=== PATIENT | female | born 1975 | race Caucasian/White ===

== ENCOUNTER → 2016-12-15 | Outpatient (CLI) | payer BC ==
[~2016-12-15] MED LIST: BCP PO; DICY20TA57 PO; DIVA500T15 PO; ESTROGEN; HYDR-3720 PO; IBUP800T26 PO; SULF1TAB38 PO
--- NOTE | 2016-12-19 09:55 | Diagnostic Imaging Report ---
EXAMINATION: Bilateral screening mammogram with a Computer Aided Detection (CAD) system. INDICATION: Screening. PERSONAL HISTORY: No current complaints stated on the questionnaire. COMPARISON: 11/13/2014. FINDINGS: The breasts are composed of heterogeneously dense parenchyma which may decrease mammographic sensitivity. There are occasional benign-appearing calcifications. Allowing for technique and positional differences, no suspicious change is seen. IMPRESSION: Dense breasts with no definite change. ACR BI-RADS Category 2: Benign findings. Result letter will be mailed to the patient. Note: At least 10% of breast cancer is not imaged by mammography. Dictated by: Dictated on workstation # [id number]
== END ==
LOC: RAD 12:40
PROVIDERS: ATTEND Obstetrics & Gynecology
DX: Z12.31 Encounter for screening mammogram for malignant neoplasm of breast (principal)
CPT/HCPCS: 77067

== ENCOUNTER → 2017-12-21 | Outpatient (CLI) | payer BC ==
--- NOTE | 2017-12-21 13:18 | Diagnostic Imaging Report ---
INDICATION: Routine screening. Comparison is made with prior study from 12/15/2016 and 11/13/2014. 2-D and 3-D bilateral screening mammography was performed. The current study was also evaluated with a Computer Aided Detection (CAD) system. FINDINGS: Both breasts show marked parenchymal heterogeneity and increased density, limiting the sensitivity of mammography. No discrete mass is identified. Benign calcifications on the right appear stable. No malignant-appearing microcalcifications are seen. The axillae are unremarkable. IMPRESSION: No mammographic features suspicious for malignancy are identified. ACR BI-RADS Category 2: Benign findings. Result letter will be mailed to the patient. Note: At least 10% of breast cancer is not imaged by mammography. Dictated by: Dictated on workstation # [id number]
== END ==
LOC: RAD 09:11
PROVIDERS: ATTEND Obstetrics & Gynecology
DX: Z12.31 Encounter for screening mammogram for malignant neoplasm of breast (principal)
CPT/HCPCS: 77067

== ENCOUNTER 2018-07-27 16:08 | Emergency (ER) | payer BC ==
[~2018-07-27] VITALS: Ht 152.4 cm; Wt 50.8 kg
--- OUTSIDE RECORDS SUMMARY | 2018-07-27 16:13 | XMS REPORT | Continuity of Care Document ---
Author Author [facility] Organization [facility] Address Unknown Phone Unavailable Allergies Active Description Code Type Severity Reaction Onset Reported/Identified Relationship to Patient Clinical Status Yes NKANo Known Allergies NKA Miscellaneous Allergy Unknown N/A 07/12/2006 Yes No Known Drug Allergies [id number] Drug Allergy Unknown N/A 02/14/2008 Medications There is no data. Problems Date Dx Coded Attending Type Code Diagnosis Diagnosed By 04/05/2013 ISABELL PERDOMO, DARBY Oh Ot 599.0 URIN TRACT INFECTION NOS 04/05/2013 DARBY WHYTE MD Ot 789.09 ABDOMINAL PAIN, OTHER SPECIFIED SITE 09/09/2014 Ot 626.2 EXCESSIVE MENSTRUATION 09/24/2014 Ot 626.8 09/24/2014 Ot V72.63 09/24/2014 Ot V74.8 11/11/2014 Ot 611.72 11/11/2014 Ot 793.89 11/11/2014 Ot 793.80 11/11/2014 WILLIAM PERDOMO, SHANEL Oh Ot 599.70 11/11/2014 Ot 626.8 11/11/2014 Ot V72.63 11/11/2014 Ot V74.8 12/15/2014 MARIANNE PERDOMO, AL Marks Ot 611.72 12/30/2014 Ot 611.72 12/30/2014 Ot 793.89 12/30/2014 Ot 793.80 12/30/2014 SHANEL THOMAS MD Ot 599.70 12/30/2014 Ot 626.8 12/30/2014 Ot V72.63 12/30/2014 Ot V74.8 12/30/2014 MARIANNE PERDOMO, AL Marks Ot 611.72 01/12/2015 MARIANNE PERDOMO, AL Marks Ot 611.72 12/11/2016 WILLIAM PERDOMO, SHANEL Oh Ot 599.70 HEMATURIA, UNSPECIFIED 12/11/2016 Ot 626.8 MENSTRUAL DISORDER NEC 12/11/2016 Ot V72.63 PRE- PROCEDURAL LABORATORY EXAMINATION 12/11/2016 Ot V74.8 SCREEN- BACTERIAL DIS NEC 12/11/2016 AL LOPES MD Ot 611.72 LUMP OR MASS IN BREAST 12/19/2016 AL LOPES MD Ot Z12.31 ENCNTR SCREEN MAMMOGRAM FOR MALIGNANT NE 12/28/2016 AL LOPES MD, Ot Z12.31 ENCNTR SCREEN MAMMOGRAM FOR MALIGNANT NE 12/24/2017 AL LOPES MD, Ot Z12.31 ENCNTR SCREEN MAMMOGRAM FOR MALIGNANT NE 12/24/2017 AL LOPES MD, Ot Z12.31 ENCNTR SCREEN MAMMOGRAM FOR MALIGNANT NE 01/01/2018 AL LOPES MD, Ot Z12.31 ENCNTR SCREEN MAMMOGRAM FOR MALIGNANT NE Procedures There is no data. Results There is no data. Encounters ACCT No. Visit Date/Time Discharge Status Pt. Type Provider Facility Loc./Unit Complaint [id number] 12/21/2017 09:11:00 12/21/2017 23:59:59 CLS Outpatient AL LOPES MD [facility] RAD SCREENING [id number] 12/15/2016 12:40:00 12/15/2016 23:59:59 CLS Outpatient AL LOPES MD [facility] RAD SCREENING [id number] 11/13/2014 07:37:00 11/13/2014 23:59:59 CLS Outpatient AL LOPES MD [facility] RAD LUMP,THICKEN AREA [id number] 04/26/2013 17:12:00 04/26/2013 23:59:59 CLS Outpatient [id number] 04/25/2013 15:33:00 04/25/2013 23:59:59 CLS Outpatient SHANEL THOMAS MD [facility] RAD HEMATURIA [id number] 04/04/2013 18:03:00 04/05/2013 00:02:00 DIS Emergency DARBY WHYTE MD [facility] ER ABD PAIN [id number] 02/03/2013 09:49:00 02/03/2013 23:59:59 [facility] Outpatient [id number] 11/11/2014 12:42:00 Document Registration [id number] 11/11/2014 12:42:00 Document Registration [id number] 09/09/2014 09:55:00 Document Registration [id number] 09/03/2014 08:00:00 Document Registration [id number] 11/01/2009 14:35:00 Document Registration
[2018-07-27] MEDS ORDERED: GABA-486 (16:22)
[2018-07-27] MEDS ORDERED: ETHY1TAB (16:22)
[2018-07-27] MEDS ORDERED: TOPI25TA10 (16:22)
--- NOTE | 2018-07-27 16:24 | ED Headache ---
General Chief Complaint: Head/Cervical Problems Stated Complaint: MIGRAINE FOR 4 DAYS Nursing Triage Note: ARRIVED VIA AMB TO ROOM 04 WITH COMPLAINTS OF MIGRAINE X4 DAYS. Nursing Sepsis Screen: No Definite Risk Source: patient, family Exam Limitations: no limitations History of Present Illness Date Seen by Provider: Jul 27, 2018 Time Seen by Provider: 16:12 Initial Comments The patient presents to the ER by private conveyance with chief complaint for the past 4 days she's been experiencing intermittent headaches that are throbbing above the right eye wrapping around to the right quaker. They will last several hours at a time. She has a known migraine disorder and this is consistent. She did not have any aura. She's not having any hallucination loss of vision, sore throat cough ear fullness. She's having some clear rhinorrhea for the past several days. She's had no fevers chills shortness of breath but she has had nausea and vomiting with no vomiting today. She denies dysuria. She says she's not had a period since 2014 because of a endometrial ablation. Allergies and Home Medications Allergies Coded Allergies: No Known Drug Allergies (Verified , 02/14/08) Patient Home Medication List Home Medication List Reviewed: Yes Review of Systems Review of Systems Constitutional: No chills, No fever Eyes: Denies Blindness, Denies Blurred Vision, Denies Decreased Acuity, Denies Pain; Photophobia Ears, Nose, Mouth, Throat: denies ear pain, denies ear discharge, denies throat pain, denies throat swelling Respiratory: No cough, No short of breath Cardiovascular: No chest pain, No edema Gastrointestinal: No abdominal pain, No constipation, No diarrhea; nausea, vomiting Past Kxcyeoq-Acfnew-Ubmebk Hx Patient Social History Alcohol Use: Denies Use Recreational Drug Use: No Smoking Status: Never a Smoker Recent Foreign Travel: No Contact w/Someone Who Travel: No Recent Infectious Disease Expo: No Past Medical History Surgeries: Yes (WISDOM TEETH) Respiratory: No Cardiac: No Neurological: Yes Headaches /Migraines Reproductive Disorders: Yes (DUB, UTERINE MASS) Genitourinary: No Gastrointestinal: Yes (IBS) Endocrine: No HEENT: No Cancer: No Psychosocial: No Blood Disorders: No Physical Exam Vital Signs Vital Signs - First Documented 07/27/18 16:12 Temp 98.0 Pulse 93 Resp 16 B/P (MAP) 143/91 (108) Pulse Ox 96 O2 Delivery Room Air Capillary Refill : Less Than 3 Seconds Height, Weight, BMI Height: 5'0.00" Weight: 112lbs. oz. 50.363154qn; BMI Method:Stated General Appearance: WD/WN, mild distress HEENT: PERRL/EOMI, normal ENT inspection, TMs normal, pharynx normal Neck: non-tender, full range of motion, supple, normal inspection Cardiovascular: normal peripheral pulses, regular rate, rhythm, no edema Respiratory: no respiratory distress, no accessory muscle use Psychiatric: alert, oriented x 3 Crainal Nerves: normal hearing, normal speech, PERRL, other (cranial nerves II through XII intact as tested) Coordination/Gait: normal gait Motor/Sensory: no motor deficit, no sensory deficit Skin: normal color, warm/dry Progress/Results/Core Measures Results/Orders My Orders Orders - [facility] Urine Bedside (07/27/18 16:19) Prochlorperazine Injection (Compazine In (07/27/18 16:30) Ondansetron Oral Dissolve Tab (Zofran (07/27/18 16:30) Ketorolac Injection (Toradol Injection) (07/27/18 16:30) Sumatriptan Injection (Imitrex Injection (07/27/18 16:30) Diphenhydramine Tablet (Benadryl Tablet) (07/27/18 16:30) Acetaminophen Tablet (Tylenol Tablet) (07/27/18 17:15) Dexamethasone Injection (Decadron Inject (07/27/18 17:15) Medications Given in ED Current Medications Medications Dose Ordered Sig/Carly Route Start Time Stop Time Status Last Admin Dose Admin Diphenhydramine HCl 50 mg ONCE ONCE PO 07/27/18 16:30 07/27/18 16:31 DC 07/27/18 16:34 50 MG Ketorolac Tromethamine 30 mg ONCE ONCE IM 07/27/18 16:30 07/27/18 16:31 DC 07/27/18 16:31 30 MG Ondansetron HCl 4 mg ONCE ONCE PO 07/27/18 16:30 07/27/18 16:31 DC 07/27/18 16:27 4 MG Prochlorperazine Edisylate 10 mg ONCE ONCE IM 07/27/18 16:30 07/27/18 16:31 DC 07/27/18 16:30 10 MG Sumatriptan Succinate 6 mg ONCE ONCE SQ 07/27/18 16:30 07/27/18 16:31 DC 07/27/18 16:29 6 MG Vital Signs/I&O 07/27/18 16:12 Temp 98.0 Pulse 93 Resp 16 B/P (MAP) 143/91 (108) Pulse Ox 96 O2 Delivery Room Air Blood Pressure Mean: 108 Progress Progress Note #1: Time: 16:24 Progress Note Bedside hCG. Imitrex, Compazine, Zofran oral dissolving tablet, Benadryl oral and Toradol 30 mg IM. We'll consider Decadron Progress Note #2: Time: 17:16 Progress Note The patient's pain significantly improved from an 8 down to 5 out of 10. She still having a little bit nauseous we'll give her some Reglan in addition to Tylenol and Decadron. If she is doing well after that we'll go ahead and let her go home get some rest. Departure Impression Primary Impression: Migraine Qualified Codes: G43.009 - Migraine without aura, not intractable, without status migrainosus Disposition: 01 HOME, SELF-CARE Condition: Improved Departure-Patient Inst. Decision time for Depature: 17:17 Referrals: ELISABETH PEREYRA DO (PCP/Family) Primary Care Physician Patient Instructions: Migraine Headache (DC) Add. Discharge Instructions: By 10:00 tonight you can resume the Advil, Tylenol and Benadryl as necessary. Get some sleep. Drink plenty of fluids tonight before going to sleep. All discharge instructions reviewed with patient and/or family. Voiced understanding. DOUG EAST Jul 27, 2018 16:24
[2018-07-27] MEDS ORDERED: PROCHLORPERAZINE 10 MG/2ML INJ (COMPAZINE) IM ONE (16:30)
[2018-07-27] MEDS ORDERED: KETOROLAC 30 MG/ML VIAL IM ONE (16:30)
[2018-07-27] MEDS ORDERED: SUMAtriptan 6 MG/0.5 ML (IMITREX) INJ SQ ONE (16:30)
[2018-07-27] MEDS ORDERED: ONDANSETRON 4 MG (ZOFRAN) ORAL DISSOLVE TAB PO ONE (16:30)
[2018-07-27] MEDS ORDERED: diphenhydrAMINE 25 MG TAB (BENADRYL) PO ONE (16:30)
--- NOTE | 2018-07-27 17:12 | NUR ---
PT RATES HER PAIN 5/10 ET STATES PAIN IS BETTER BUT SHE IS STILL HAVING PRESSURE. DR EAST NOTIFIED.
--- NOTE | 2018-07-27 17:13 | NUR ---
IN TALKING TO PT AT THIS TIME.
[2018-07-27] MEDS ORDERED: METOCLOPRAMIDE INJ 10 MG/2 ML (REGLAN) IM ONE (17:15)
[2018-07-27] MEDS ORDERED: DEXAMETHASONE 10 MG/ML (DECADRON) 1 ML VIAL IM ONE (17:15)
[2018-07-27] MEDS ORDERED: ACETAMINOPHEN 500 MG TAB (TYLENOL) PO ONE (17:15)
[2018-07-27 17:39] VITALS: BP 107/73
== END 2018-07-27 17:39 | disposition home or self-care (01) ==
LOC: EDUNIT# 16:08 → ER 16:09
DX: G43.909 Migraine, unspecified, not intractable, without status migrainosus (principal); K58.9 Irritable bowel syndrome, unspecified; Z87.448 Personal history of other diseases of urinary system; Z98.890 Other specified postprocedural states
CPT/HCPCS: 84703; 96372; 99284

== ENCOUNTER → 2019-01-17 | Outpatient (CLI) | payer BC ==
[~2019-01-17] MED LIST changes: +ETHY1TAB; +GABA-486; +TOPI25TA10
--- NOTE | 2019-01-17 17:06 | Diagnostic Imaging Report ---
INDICATION: Routine screening. COMPARISON: Prior mammograms from 12/21/2017 and 12/15/2016. EXAMINATION: 2D and 3D bilateral screening mammography was performed with CAD. The current study was also evaluated with a Computer Aided Detection (CAD) system. FINDINGS: Both breasts remain heterogeneously dense, limiting the sensitivity of mammography. The parenchymal pattern appears stable. No discrete mass is identified. No malignant appearing microcalcifications are seen. There are benign calcifications in the right breast. The axillae are unremarkable. IMPRESSION: No mammographic features suspicious for malignancy are identified. ACR BI-RADS Category 2: Benign findings. Result letter will be mailed to the patient. Note: At least 10% of breast cancer is not imaged by mammography. Dictated on workstation # [id number]
== END ==
LOC: RAD 08:15
PROVIDERS: ATTEND Obstetrics & Gynecology
DX: Z12.31 Encounter for screening mammogram for malignant neoplasm of breast (principal)
CPT/HCPCS: 77067

== ENCOUNTER → 2020-04-06 | Outpatient (CLI) | payer BC ==
--- NOTE | 2020-04-06 12:57 | Diagnostic Imaging Report ---
INDICATION: Routine screening. COMPARISON: 01/17/2019 and 12/21/2017. TECHNIQUE: 2D and 3D bilateral screening mammography was performed with CAD. FINDINGS: Both breasts are heterogeneously dense, limiting the sensitivity of mammography. There are scattered benign calcifications. No mass or malignant appearing microcalcifications are seen. The axillae are unremarkable. IMPRESSION: No mammographic features suspicious for malignancy are identified. ACR BI-RADS Category 2: Benign findings. Result letter will be mailed to the patient. Note: At least 10% of breast cancer is not imaged by mammography. Dictated by: Dictated on workstation # [id number]
== END ==
LOC: RAD 07:30
PROVIDERS: ATTEND Obstetrics & Gynecology
DX: Z12.31 Encounter for screening mammogram for malignant neoplasm of breast (principal)
CPT/HCPCS: 77063; 77067

== ENCOUNTER 2021-08-12 14:07 | Emergency (ER) | payer BC ==
[~2021-08-12] VITALS: Ht 152.4 cm; Wt 48.5 kg
[2021-08-12] MEDS ORDERED: diphenhydrAMINE 50 MG/ML INJ (BENADRYL) IVP ONE (14:45)
[2021-08-12] MEDS ORDERED: ACETAMINOPHEN 500 MG TAB (TYLENOL) PO ONE (14:45)
[2021-08-12] MEDS ORDERED: PROMETHAZINE INJ 25 MG/ML (PHENERGAN) AMP IVP ONE (14:45)
[2021-08-12] MEDS ORDERED: NS IV 500 ML 500 ML IV ONE (14:45)
[2021-08-12] MEDS ORDERED: methylPREDNISolone 125 MG (Solu-MEDROL) VIAL IVP ONE (14:45)
[2021-08-12] MEDS ORDERED: KETOROLAC 30 MG/ML VIAL IVP ONE (14:45)
--- NOTE | 2021-08-12 14:48 | ED Headache ---
General Chief Complaint: Head/Cervical Problems Stated Complaint: MIGRAINE Nursing Triage Note: PT AMBULATE TO ROOM FT1 WITH C/O MIGRAINE X3 DAYS. PT REPORTS HX OF MIGRAINES. PT REPORTS TAKING TYLENOL AND BENEDRYL WITHOUT RELIEF. PT REPORTS TAKING X3 HYDROCODONE YESTERDAY WITHOUT RELIEF. Source: patient, other Exam Limitations: no limitations History of Present Illness Date Seen by Provider: Aug 12, 2021 Time Seen by Provider: 14:24 Initial Comments Patient to the ER by private conveyance with her significant other and chief complaint of 3 days of persistent right-sided throbbing migraine headache. No blindness, weakness, numbness, confusion, diarrhea, fevers or chills. She has nausea. She has been using gabapentin and topiramate to prevent migraines and has Dr. Esparza as her neurologist. She also was given a new medication to try and acutely treat the migraine headache but she cannot member the name of it. She also had her gabapentin elevated to 200 mg daily by her neurologist when she called him today. She is only had to come out 2 times in the last 4 years to have her migraines dealt with by a "cocktail". She is also complaining of some paresthesias burning tingling sensations going down bilateral arms along the dorsum. No trauma or falls. Allergies and Home Medications Allergies Coded Allergies: No Known Drug Allergies (Verified , 02/14/08) Patient Home Medication List Home Medication List Reviewed: Yes Ethynodiol D-Ethinyl Estradiol (Ethynodiol-Eth Estra 1Mg-50Mcg) 1 Each Tablet, (Reported) Entered as Reported by: LUÍS TREVINO on 07/27/181621 Gabapentin (Gabapentin) 100 Mg Capsule, (Reported) Entered as Reported by: LUÍS TREVINO on 07/27/181621 Topiramate (Topiramate) 25 Mg Tablet, (Reported) Entered as Reported by: LUÍS TREVINO on 07/27/181621 Review of Systems Review of Systems Constitutional: No chills, No diaphoresis Eyes: Denies Blindness, Denies Drainage Ears, Nose, Mouth, Throat: denies ear pain, denies ear discharge Respiratory: No cough, No short of breath Cardiovascular: No edema, No palpitations Gastrointestinal: No abdominal pain, No constipation, No diarrhea; nausea Genitourinary: No discharge, No dysuria Musculoskeletal: No back pain, No joint pain All Other Systems Reviewed Negative Unless Noted: Yes Past Jtpmnth-Gvtais-Sftfoy Hx Patient Social History Tobacco Use?: No Smoking Status: Never a Smoker Smokeless Tobacco Frequency: Never a User Use of E-Cig and/or Vaping dev: No Use of E-Cig and/or Vaping Chu: Never a User Substance use?: No Alcohol Use?: No Pt feels they are or have been: No Past Medical History Surgeries: Yes (WISDOM TEETH) Respiratory: No Cardiac: No Neurological: Yes Headaches /Migraines Reproductive Disorders: Yes (DUB, UTERINE MASS) Genitourinary: No Gastrointestinal: Yes (IBS) Endocrine: No HEENT: No Cancer: No Psychosocial: No Blood Disorders: No Physical Exam Vital Signs Vital Signs - First Documented 08/12/21 14:26 Temp 36.4 Pulse 93 Resp 19 B/P (MAP) 130/82 (98) O2 Delivery Room Air Capillary Refill : Less Than 3 Seconds Height, Weight, BMI Height: 5'0.00" Weight: 112lbs. oz. 50.119156ru; 20.00 BMI Method:Stated General Appearance: WD/WN, mild distress HEENT: PERRL/EOMI, normal ENT inspection, TMs normal, pharynx normal (Oral mucosa is moist) Neck: full range of motion, supple, normal inspection Cardiovascular: normal peripheral pulses, regular rate, rhythm Respiratory: no respiratory distress, no accessory muscle use Psychiatric: alert, oriented x 3 Crainal Nerves: normal hearing, normal speech, PERRL Coordination/Gait: normal gait Motor/Sensory: no motor deficit, no sensory deficit Skin: normal color, warm/dry Progress/Results/Core Measures Results/Orders My Orders Orders - [facility] Diphenhydramine Injection (Benadryl Inje (08/12/21 14:45) Promethazine Injection (Phenergan Injec (08/12/21 14:45) Methylprednisolone Sod Succ (Solu-Medrol (08/12/21 14:45) Ketorolac Injection (Toradol Injection) (08/12/21 14:45) Acetaminophen Tablet (Tylenol Tablet) (08/12/21 14:45) Ed Iv/Invasive Line Start (08/12/21 14:41) Ns Iv 500 Ml (Sodium Chloride 0.9%) (08/12/21 14:45) Medications Given in ED Current Medications Medications Dose Ordered Sig/Carly Route Start Time Stop Time Status Last Admin Dose Admin Acetaminophen 1,000 mg ONCE ONCE PO 08/12/21 14:45 08/12/21 14:46 DC 08/12/21 14:53 1,000 MG Diphenhydramine HCl 25 mg ONCE ONCE IVP 08/12/21 14:45 08/12/21 14:46 DC 08/12/21 14:52 25 MG Ketorolac Tromethamine 30 mg ONCE ONCE IVP 08/12/21 14:45 08/12/21 14:46 DC 08/12/21 14:52 30 MG Methylprednisolone Sodium Succinate 125 mg ONCE ONCE IVP 08/12/21 14:45 08/12/21 14:46 DC 08/12/21 14:53 125 MG Promethazine HCl 25 mg ONCE ONCE IVP 08/12/21 14:45 08/12/21 14:46 DC 08/12/21 14:52 25 MG Sodium Chloride 500 ml @ 0 mls/hr Q0M ONCE IV 08/12/21 14:45 08/12/21 14:46 DC 08/12/21 14:53 999 MLS/HR Vital Signs/I&O 08/12/21 14:26 Temp 36.4 Pulse 93 Resp 19 B/P (MAP) 130/82 (98) O2 Delivery Room Air Blood Pressure Mean: 98 Progress Progress Note #1: Time: 14:46 Progress Note She has no new motor weakness nor sensory deprivation and I suspect that her paresthesias of her bilateral upper extremities are related to paracervical radiculopathy. She does feel like she has a knot in her shoulders probably from the headache this been going on for 3 days. Are going to trial a treatment of her headache and see if that helps her symptoms. Return precautions were discussed. Plan to use Toradol, Phenergan and 500 cc of saline, Benadryl, Solu- Medrol and Tylenol for her migraine. Progress Note #2: Time: 15:36 Progress Note The patient started to feel little better and drowsy. We will allow her to go home and return precautions were given Departure Impression Primary Impression: Migraine Qualified Codes: G43.001 - Migraine without aura, not intractable, with status migrainosus Additional Impression: Cervical radiculopathy, acute Disposition: HOME, SELF-CARE Condition: Stable Departure-Patient Inst. Decision time for Depature: 15:36 Referrals: ELISABETH PEREYRA DO (PCP/Family) Primary Care Physician Patient Instructions: Migraines (DC), How to Keep Track of Your Headaches Add. Discharge Instructions: Drink plenty of fluids. Tylenol 1000 mg every 8 hours necessary for headache. Ibuprofen 800 mg every 8 hours as necessary for headache. Plenty of rest over the next couple days. Return to the ER promptly if you experience fever, confusion, sweats, intractable vomiting or other worrisome symptoms. All discharge instructions reviewed with patient and/or family. Voiced understanding. Work/School Note: Work Release Form Date Seen in the Emergency Department: Aug 12, 2021 Return to Work: Aug 15, 2021 Restrictions: No Restrictions D[facility] Aug 12, 2021 14:48
[2021-08-12 15:49] VITALS: BP 123/74
== END 2021-08-12 15:50 | disposition home or self-care (01) ==
LOC: EDUNIT# 14:07 → ER 14:09
DX: G43.909 Migraine, unspecified, not intractable, without status migrainosus (principal); M54.12 Radiculopathy, cervical region; Z79.899 Other long term (current) drug therapy

== ENCOUNTER → 2021-09-30 | Outpatient (CLI) | payer BC ==
--- NOTE | 2021-09-30 10:08 | Diagnostic Imaging Report ---
Indication: Routine screening. Comparison is made with prior mammograms of 04/06/2020 and 01/17/2019. 2-D and 3-D bilateral screening mammography was performed with CAD. Both breasts are heterogeneously dense, limiting the sensitivity of mammography. The parenchymal pattern is stable. There are occasional benign calcifications. No mass or malignant-appearing microcalcifications are seen. Axillae are unremarkable. IMPRESSION: BI-RADS Category 2 No mammographic features suspicious for malignancy are identified. ACR BI-RADS Category 2: Benign findings. Result letter will be mailed to the patient. Note: At least 10% of breast cancer is not imaged by mammography. Dictated by: Dictated on workstation # [id number]
== END ==
LOC: RAD 07:41
PROVIDERS: ATTEND Obstetrics & Gynecology
DX: Z12.31 Encounter for screening mammogram for malignant neoplasm of breast (principal)
CPT/HCPCS: 77063; 77067

== ENCOUNTER → 2022-11-02 | Outpatient (CLI) | payer BC ==
--- NOTE | 2022-11-02 09:02 | Diagnostic Imaging Report ---
Indication: Routine screening. Comparison is made with prior mammograms for 09/30/2021 and 04/06/2020. 2-D and 3-D bilateral screening mammography was performed with CAD. Both breasts are heterogeneously dense, limiting the sensitivity of mammography. There are benign calcifications bilaterally. No mass or malignant-appearing microcalcifications are seen. Axillae are unremarkable. IMPRESSION: BI-RADS Category 2 No mammographic features suspicious for malignancy are identified. ACR BI-RADS Category 2: Benign findings. Result letter will be mailed to the patient. Note: At least 10% of breast cancer is not imaged by mammography. Dictated by: Dictated on workstation # [id number]
== END ==
LOC: RAD 07:06
PROVIDERS: ATTEND Obstetrics & Gynecology
DX: Z12.31 Encounter for screening mammogram for malignant neoplasm of breast (principal)
CPT/HCPCS: 77063; 77067